=== PATIENT | female | born 1970 | race Caucasian/White ===

== ENCOUNTER 2017-06-06 10:07 | Emergency (ER) | payer MEDICAID, OTHER ==
[~2017-06-06] VITALS: Ht 160 cm; Wt 84.4 kg
[2017-06-06 10:19] VITALS: BP 108/63; PULSE 66; RESP 18; TEMP 98; O2SAT 97
[2017-06-06] MEDS ORDERED: PHEN0.4T PO (11:03)
[2017-06-06] MEDS ORDERED: SULF1TAB23 PO (11:03)
[2017-06-06] MEDS ORDERED: TIZA4CAP3 PO (11:04)
[2017-06-06] MEDS ORDERED: PROM25TA10 PO (11:04)
--- NOTE | 2017-06-06 11:24 | PD ---
HPI Chief Complaint: Dizziness Time Seen by Provider: 11:01 Travel History International Travel<30 days: No Contact w/Intl Traveler<30days: No Traveled to known affect area: No History of Present Illness HPI Patient is a 46-year-old female presents emergency department with headache and dizziness since yesterday. 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 She states is when she got home from work she felt very fatigued had some neck pain as well as a headache. She is followed by an orthopedic physician after having the slip and fall in April while at work. She states that she has had imaging of her neck and was told that it was muscles. At home she has been taking ibuprofen without significant relief. She states she waited until her got home so she can come in here and be seen. She denies any acute injury, denies any focalized weakness, denies any chest pain shortness of breath abdominal pain nausea vomiting diarrhea or palpitations. States the pain is severe in her neck, radiation down her back, associated signs and symptoms in context as above. PFSH Past Medical History Diminished Hearing: No GERD: Yes (BARRETS ESOPHAGUS) Musculoskeletal: Yes (CHRONIC NECK PAIN) Tetanus Vaccination: Unknown Influenza Vaccination: No ?: Unknown Past Surgical History Hysterectomy: Yes Social History Alcohol Use: No Tobacco Use: No Substance Use: No Allergies-Medications (Allergen,Severity, Reaction): Coded Allergies: acetaminophen (Unverified Allergy, Intermediate, HIVES RASH, 06/06/17) cephalexin (Unverified Allergy, Intermediate, RASH HIVES, 06/06/17) erythromycin base (Unverified Allergy, Intermediate, RASH HIVES, 06/06/17) hydrocodone (Unverified Allergy, Intermediate, HIVES RASH, 06/06/17) morphine (Unverified Allergy, Intermediate, HIVES RASH, 06/06/17) ondansetron (Unverified Allergy, Intermediate, HIVES RASH, 06/06/17) vancomycin (Unverified Allergy, Intermediate, RASH HIVES, 06/06/17) Reported Meds & Prescriptions Reported Meds & Active Scripts Active Reported Phenergan (Promethazine HCl) 25 Mg Tablet 25 Mg PO Q6H PRN Tizanidine (Tizanidine HCl) 4 Mg Cap 4 Mg PO HS Sulfamethoxazole-Trimethoprim 800-160 Mg Tab 1 Tab PO BID Pyridium (Phenazopyridine HCl) 100 Mg Tab 100 Mg PO Q8HR Review of Systems Except as stated in HPI: all other systems reviewed are Neg Physical Exam Narrative GENERAL: Well-developed well-nourished no obvious distress peer SKIN: Focused skin assessment warm/dry. HEAD: Atraumatic. Normocephalic. EYES: Pupils equal and round. No scleral icterus. No injection or drainage. ENT: No nasal bleeding or discharge. Mucous membranes pink and moist. NECK: Trachea midline. No JVD. CARDIOVASCULAR: Regular rate and rhythm. No murmur appreciated. RESPIRATORY: No accessory muscle use. Clear to auscultation. Breath sounds equal bilaterally. GASTROINTESTINAL: Abdomen soft, non-tender, nondistended. Hepatic and splenic margins not palpable. MUSCULOSKELETAL: No obvious deformities. No clubbing. No cyanosis. No edema. No midline CT or L-spine tenderness. NEUROLOGICAL: Awake and alert. No obvious cranial nerve deficits. Moves all 4 extremities, ambulates with an even narrow-base gait. PSYCHIATRIC: Appropriate mood and affect; insight and judgment normal. Data Data Last Documented VS Vital Signs Date Time Temp Pulse Resp B/P (MAP) Pulse Ox O2 Delivery O2 Flow Rate FiO2 06/06/17 10:19 98.0 66 18 108/63 (78) [address] Brain W/O Iv Contrast(Rout) (06/06/17 ) Electrocardiogram (06/06/17 ) Acetamin-Hydrocod 325-5 Mg ([place] 5-325 (06/06/17 11:30) Promethazine (Phenergan) (06/06/17 11:30) Oxycodone-Acetamin 5-325 Mg (Percocet (06/06/17 11:30) Ibuprofen (Motrin) (06/06/17 11:45) Ed Discharge Order (06/06/17 12:50) [facility] Medical Decision Making Medical Screen Exam Complete: Yes Emergency Medical Condition: Yes Differential Diagnosis Acute on chronic neck pain, undiagnosed head injury, electrolyte abnormality unlikely, anemia unlikely, arrhythmia unlikely, Narrative Course Patient is a 46-year-old female presents emergency department for evaluation of neck head pain and dizziness. Saw in the context of a slip and fall at work 2 months ago. She states she has not had any head imaging since that accident. She has not had any acute injury. Patient states the pain is severe and she is going to follow-up with her orthopedic physician tomorrow but needs some help today. Initially I had ordered hydrocodone for her but it is listed directly on her allergy list is hives, I therefore changed to oxycodone which the patient has had scripts for in the past. She requested something for nausea as well, she is allergic to Zofran so a dose of Phenergan was ordered for her. According to the patient's E force, she has had multiple scripts for oxycodone since July 2016 last one filled March 29 for 40 tablets. The patient states that ever since she had her bariatric surgery in 2009 these medications have been poorly tolerated for her. When I asked her why she had taken so many she states that she feels a prescription but she has not really been taking them. These scripts have been filled throughout [facility]: [place], [place], [place], [place], [place]. Patient request something by injection instead because these are fine for her. I informed her that injections and opiates are for life-threatening injuries only which I do not perceive her. She was offered ibuprofen instead and accepted. Ultimately patient CT head and EKG were negative. Patient was elated at this news. I discussed with her need for follow-up with her orthopedic surgeon who is in [place]. She states that she is new to the area which may explain her other narcotic scripts. At this time she is stable for discharge. Discussed returning to criteria Diagnosis Primary Impression: Fatigue Additional Impressions: Neck pain Headache Additional Instructions: Follow-up with your orthopedist tomorrow. Try heating pads ibuprofen 200 mg p.o. every 6 hours as needed. Disposition: 01 DISCHARGE HOME Condition: Stable Jonh Ram MD Jun 06, 2017 11:24
[2017-06-06] MEDS ORDERED: PROMETHAZINE HCL 25 MG TAB PO ONE (11:30)
[2017-06-06] MEDS ORDERED: ACETAMINOPHEN/HYDROcodone 325 MG/5 MG TAB PO ONE (11:30)
[2017-06-06] MEDS ORDERED: oxyCODONE/ACETAMINOPHEN 5 MG/325 MG TAB PO ONE (11:30)
[2017-06-06] MEDS ORDERED: IBUPROFEN 600 MG TAB PO ONE (11:45)
--- NOTE | 2017-06-06 12:32 | RADRPT ---
EXAM DATE/TIME: 06/06/2017 12:21 [place] COMPARISON: No previous studies available for comparison. INDICATIONS : Nausea and dizziness. RADIATION DOSE: 51.56 CTDIvol (mGy) MEDICAL HISTORY : Gastroesophageal reflux disease. SURGICAL HISTORY : Hysterectomy. Cervical fusion removed. ENCOUNTER: Initial ACUITY: 2 days PAIN SCALE: 0/10 LOCATION: cranial TECHNIQUE: Multiple contiguous axial images were obtained of the head. Using automated exposure control and adj ustment of the mA and/or kV according to patient size, radiation dose was kept as low as reasonably a chievable to obtain optimal diagnostic quality images. DICOM format image data is available electro nically for review and comparison. FINDINGS: CEREBRUM: The ventricles are normal for age. No evidence of midline shift, mass lesion, hemorrhage or acute in farction. No extra-axial fluid collections are seen. POSTERIOR FOSSA: The cerebellum and brainstem are intact. The 4th ventricle is midline. The cerebellopontine angle i s unremarkable. EXTRACRANIAL: The visualized portion of the orbits is intact. SKULL: The calvaria is intact. No evidence of skull fracture. CONCLUSION: Normal examination. Lyndsey Weaver MD on June 06, 2017 at 12:29 Board Certified Radiologist. This report was verified electronically.
--- NOTE | 2017-06-07 15:15 | EKG ---
Date Performed: 06/06/2017 Time Performed: 11:30:15 PTAGE: 46 years EKG: SINUS BRADYCARDIA BORDERLINE ECG NO PREVIOUS TRACING DOCTOR: Chavo Valdovinos Interpretating Date/Time 06/07/2017 15:11:14
== END 2017-06-06 13:12 | disposition home or self-care (01) ==
LOC: PHED 10:07
DX: R53.83 Other fatigue (principal); M54.2 Cervicalgia; R51 Headache; R42 Dizziness and giddiness; K21.9 Gastro-esophageal reflux disease without esophagitis; R00.1 Bradycardia, unspecified; Z88.6 Allergy status to analgesic agent; Z88.5 Allergy status to narcotic agent; Z88.8 Allergy status to other drugs, medicaments and biological substances
CPT/HCPCS: 70450; 93005; 99284; Q0169